=== PATIENT | female | born 1960 | race Hispanic/Latino ===

== ENCOUNTER 2019-12-16 08:16 | Outpatient (CLI) | payer BC, SELFPAY ==
[2019-12-16 09:13] LABS: Hemoglobin A1C 9.3 % (<5.7)
[2019-12-16 09:22] LABS: Alanine Aminotransferase 77 U/L (4-35); Albumin Level 4.3 g/dL (3.5-5.1); Alkaline Phosphatase 65 U/L (38-126); Aspartate Amino Transferase 74 U/L (14-36); Bilirubin,Total 0.3 mg/dL (0.2-1.3); Blood Urea Nitrogen 17 mg/dL (7-17); Calcium 9.2 mg/dL (8.4-10.2); Carbon Dioxide 30 mmol/L (22-30); Chloride 94 mmol/L (98-107); Cholesterol 114 mg/dL (0-200); Estimated Glomerular Filt Rate > 60; Glucose 248 mg/dL (65-105); HDL Direct 29 mg/dL; Sodium 137 mmol/L (137-145); Triglycerides 160 mg/dL (<150)
[2019-12-16 09:32] LABS: LDL Cholesterol Direct 67 mg/dL
[2019-12-16 09:43] LABS: Vitamin D 25 Hydroxy 44.1 ng/mL
== END 2019-12-16 08:17 | disposition home or self-care (01) ==
PROVIDERS: PCP Internal Medicine; Visit Provider Internal Medicine
DX: I10 Essential (primary) hypertension (principal); Z79.899 Other long term (current) drug therapy; E11.9 Type 2 diabetes mellitus without complications; E78.5 Hyperlipidemia, unspecified; E55.9 Vitamin D deficiency, unspecified
CPT/HCPCS: 36415; 80053; 80061; 82306; 83036

== ENCOUNTER 2020-07-02 09:13 | Outpatient (CLI) | payer BC, SELFPAY ==
--- NOTE | ~2020-07-02 | MM_ITS ---
EXAMINATION: MM screening [facility] BI w jarek HISTORY: Screening mammogram TECHNIQUE: Craniocaudal and mediolateral oblique 3-D tomosynthesis images were obtained and synthetic 2-D images were generated. CAD analysis was submitted and interpreted. COMPARISON: 02/07/2019, 09/28/2017, 03/24/2016 bilateral digital screening mammogram examinations BREAST PARENCHYMAL COMPOSITION: There are scattered areas of fibroglandular density. FINDINGS: There is no evidence of suspicious mass, calcification, or architectural distortion to sugg est malignancy in either breast. There has been no suspicious interval change. IMPRESSION: 1. No mammographic evidence of malignancy. 2. Recommend routine screening mammography in one year. BI-RADS Category 1: Negative Reviewed, dictated and finalized at location A.
== END 2020-07-02 09:14 | disposition home or self-care (01) ==
LOC: ANHIMG 09:15
PROVIDERS: PCP Internal Medicine; Visit Provider Internal Medicine
DX: Z12.31 Encounter for screening mammogram for malignant neoplasm of breast (principal)
CPT/HCPCS: 77063; 77067

== ENCOUNTER → 2020-12-17 09:58 | Outpatient (CLI) | payer BC, SELFPAY ==
--- NOTE | ~2020-12-17 | US_ITS ---
EXAMINATION: US pelvic complete w TV EXAM DATE: 12/17/2020 10:24 INDICATION: R10.31 - Right lower quadrant pain . Hysterectomy. TECHNIQUE: Pelvic transabdominal and transvaginal sonogram was performed. There are multiple graysca le and Doppler images available for interpretation. There is no prior study for comparison. FINDINGS: The bladder is unremarkable on transabdominal imaging. On transvaginal imaging the vaginal cuff is unremarkable. There are no adnexal masses identified. IMPRESSION: Unremarkable vaginal cuff and bladder. 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
== END ==
PROVIDERS: Visit Provider Obstetrics & Gynecology
DX: R10.31 Right lower quadrant pain (principal)
CPT/HCPCS: 76830; 76856

== ENCOUNTER 2021-07-29 14:40 | Outpatient (CLI) | payer BC, SELFPAY ==
--- NOTE | ~2021-07-29 | MM_ITS ---
EXAMINATION: MM screening [facility] w jarek HISTORY: Screening TECHNIQUE: Craniocaudal and mediolateral oblique 3-D tomosynthesis images were obtained and synthetic 2-D images were generated. CAD analysis was submitted and interpreted. COMPARISON: Comparison to multiple prior studies sequentially, with oldest reviewed study dated 05/2014. BREAST PARENCHYMAL COMPOSITION: There are scattered areas of fibroglandular density. FINDINGS: There is no evidence of suspicious mass, calcification, or architectural distortion to sugg est malignancy in either breast. There has been no suspicious interval change. IMPRESSION: 1. No mammographic evidence of malignancy. 2. Recommend routine screening mammography in one year. BI-RADS Category 1: Negative Reviewed, dictated and finalized at location A.
== END 2021-07-29 14:41 | disposition home or self-care (01) ==
LOC: ANHIMG 14:43
PROVIDERS: PCP Internal Medicine; Visit Provider Physician Assistant
DX: Z12.31 Encounter for screening mammogram for malignant neoplasm of breast (principal)
CPT/HCPCS: 77063; 77067

== ENCOUNTER 2021-08-05 10:33 | Emergency (ER) | payer BC, SELFPAY ==
--- NOTE | ~2021-08-05 | CT_ITS ---
EXAMINATION: CT abdomen pelvis w con DATE: 08/05/2021 13:53 INDICATION: Low abdominal pain. TECHNIQUE: Computed tomography (CT) of the abdomen and pelvis was performed with 100 mL Omnipaque 350 intravenous contrast. Automated exposure control and iterative reconstruction technique were employe d. The dose-length product was 547.24 mGy-cm. COMPARISON: CT abdomen and pelvis 08/13/2019 FINDINGS: The visualized portions of the lung bases demonstrate mild atelectasis. No pleural effusion . The heart size is normal. No pericardial effusion. The liver, gallbladder, spleen, pancreas, and ad renal glands are normal. There are cysts in the kidneys measuring up to 9 mm on the left. There is wa ll thickening in the ascending, transverse and descending colon, consistent with colitis. The appendi x is normal. There are no pathologically enlarged lymph nodes. There is no free intraperitoneal fluid . There is mild thoracolumbar spondylosis. IMPRESSION: 1. Wall thickening of the ascending, transverse, and descending colon, consistent with colitis. Reviewed, dictated and finalized at location A. IMPRESSION: 1. Wall thickening of the ascending, transverse, and descending colon, consiste nt with colitis.
[2021-08-05 10:54] VITALS: BP 143/71; PULSE 106; RESP 16; TEMP 35.9; O2SAT 98
[2021-08-05 11:09] LABS: Basophils Percent Auto 0.2 % (0.2-1.2); Eosinophils Percent Auto 0.2 % (0-4.4); Hematocrit 47.5 % (37.0-47.0); Hemoglobin 15.5 g/dL (12.0-15.0); Immature Granulocyte Absolute 0.04 K/mm3 (0.00-0.031); Immature Granulocyte Percent A 0.3 % (0-0.5); Lymphocytes Absolute Auto 1.67 K/mm3 (0.9-3.2); Lymphocytes Percent Auto 12.9 % (18.3-44.2); Mean Corpuscular HGB Conc 32.6 g/dl (32-36); Mean Corpuscular Hemoglobin 28.9 pg (26-34); Mean Corpuscular Volume 88.5 fl (80-100); Mean Platelet Volume 8.6 fl (7.4-10.4); Monocytes Percent Auto 7.9 % (2.6-8.5); Neutrophils Absolute Auto 10.2 K/mm3 (1.3-6.7); Neutrophils Percent Auto 78.5 % (45.5-73.1); Platelet Count Result 268 k/mm3 (150-375); Red Blood Count 5.37 M/mm3 (4.2-5.4); Red Cell Distribution Width 13.2 % (11.5-14.5)
[2021-08-05 11:20] LABS: Alanine Aminotransferase 23 U/L (4-35); Albumin Level 4.8 g/dL (3.5-5.1); Alkaline Phosphatase 87 U/L (38-126); Anion Gap 11 mmol/L (8-16); Aspartate Amino Transferase 29 U/L (14-36); Bilirubin,Total 0.6 mg/dL (0.2-1.3); Blood Urea Nitrogen 14 mg/dL (7-17); Calcium 9.7 mg/dL (8.4-10.2); Carbon Dioxide 29 mmol/L (22-30); Chloride 97 mmol/L (98-107); Estimated CRCL calculation 80 ml/min; Estimated Glomerular Filt Rate > 60; Glucose 268 mg/dL (65-110); Lipase 36 U/L (23-300); Sodium 137 mmol/L (137-145)
--- NOTE | 2021-08-05 12:08 | PC.NURSE ---
1034 -daughter states pt was sent home from work 2 days ago R/T COVID symptoms. Asking for COVID test.
[2021-08-05] MEDS: SODIUM CHLORIDE 0.9% IV 1,000 ML 999 ML IV CONT (13:39)
[2021-08-05 13:41] LABS: Add Urine Microscopic? YES; Appearance Urine Clear (Clear); Bacteria Urine Trace /hpf; Bilirubin Urine Negative (Negative); Blood Urine Negative (Negative); Color Urine Yellow (Yellow); Glucose Urine UA 3+ mg/dL (Negative); Ketones Urine 2+ mg/dL (Negative); Leukocyte Esterase Ur Negative LEU/UL (Negative); Nitrate Urine Negative (Negative); Protein Urine Negative (Negative); RBC Urine 0-2 /hpf (0-2); Squamous Epithelial Cell Urine Few /hpf (Few); Urobilinogen Urine Negative mg/dL (<2.0); WBC Urine 0-3 /hpf
[2021-08-05 14:05] LABS: Specific Grav Ur 1.036 (1.001-1.035)
[2021-08-05] MEDS: MORPHINE SULFATE (*CRX) 4 MG/ML INJ IV PUSH (14:12)
[2021-08-05 14:37] LABS: Lactic Acid Reflex 1.2 mmol/L (0.7-2.1)
[2021-08-05] MEDS: KETOROLAC 15 MG/ML VIAL (*BKC) IV PUSH (14:50)
--- NOTE | 2021-08-05 14:50 | ED.ABDPAIN ---
HPI - Abdominal Pain General Chief Complaint: Abdominal Pain Stated Complaint: abd pain/vomiting /diarrhea Time Seen by Provider: 08/05/21 13:20 History of Present Illness HPI narrative: Patient presents with abdominal pain started yesterday. Pain is crampy, constant, no clear aggravating or alleviating factors predominate in her lower abdomen. Her pain associated nausea vomiting and diarrhea. She denies any blood or bile or melena she denies fever she denies recent travel she denies any known sick contacts denies recent antibiotics or recent camping. Related Data Home Medications Medication Instructions Recorded Confirmed cholecalciferol (vitamin D3) 1,250 1,250 mcg PO MONTHLY 12/02/20 01/02/21 mcg (50,000 unit) capsule conjugated estrogens 0.625 mg 0.625 mg PO DAILY 12/02/20 01/02/21 tablet gabapentin 300 mg capsule 300 mg PO DAILY 12/02/20 01/02/21 hydrochlorothiazide 12.5 mg capsule 12.5 mg PO DAILY 12/02/20 01/02/21 omeprazole 20 mg capsule,delayed 20 mg PO DAILY 12/02/20 01/02/21 release Allergies Allergy/AdvReac Type Severity Reaction Status Date / Time No Known Allergies Allergy Verified 02/02/21 10:48 Review of Systems Review of Systems: CONSTITUTIONAL: Denies fever, chills, or sweats. EYES: Denies visual changes, redness, or discharge. ENT: Denies rhinorrhea, congestion, sore throat, or otalgia. CARDIOVASCULAR: Denies chest pain, palpitations, or edema. RESPIRATORY: Denies cough or dyspnea. GASTROINTESTINAL: Reports abdominal pain nausea vomiting and diarrhea GENITOURINARY: Denies dysuria or hematuria. SKIN: Denies rash or itching. MUSCULOSKELETAL: Denies back pain, joint pain, or myalgia. NEUROLOGIC: Denies headache, numbness, dizziness, or weakness. PSYCHIATRIC: Denies anxiety or depression. All systems reviewed & are unremarkable except as noted in HPI and below PMFSH Past Medical History Medical History Asthma Bacterial vaginosis High cholesterol Hypertension Screening for breast cancer Type 2 diabetes mellitus Surgical History Surgical History H/O: hysterectomy Family History Family History Father Malignant neoplasm of prostate, Onset Age: 82 Family history of diabetes mellitus in first degree relative Patient's father is Mother Family history of lung cancer, Onset Age: 56 Family history of heart disease in male family member before age 55 Family history of malignant neoplasm of cervix Family history of type 2 diabetes mellitus Sibling Diabetes mellitus Other Hypertension Social History Social History Smoking status: Never smoker Alcohol intake: current Exam Narrative: GENERAL: Well-appearing, well-nourished, and in no acute distress. HEAD: Normocephalic, atraumatic. EYES: PERRLA and EOMI. ENT: Nares clear, no rhinorrhea or epistaxis. Mucous membranes moist. NECK: Supple. No masses. No JVD CHEST: Clear to auscultation. No respiratory distress. No wheezes rales or rhonchi HEART: Regular rate and rhythm. No murmur heard. Normal peripheral pulses. ABDOMEN: Moderate diffuse tenderness soft, nondistended. EXTREMITIES: Normal range of motion. No edema. SKIN: Warm, dry, no rash. NEURO: No focal deficits. Alert and oriented x3. PSYCH: Normal mood and affect. Course Reevaluation(s) Reevaluation #1: Patient reports feeling much improved labs imaging reviewed with patient. Patient comfortable with outpatient plan. Date: 08/05/21 Time: 14:51 Vital Signs Vital signs: Vital Signs Temperature 35.9 C L 08/05/21 10:54 Pulse Rate 106 H 08/05/21 10:54 Respiratory Rate 16 08/05/21 10:54 Blood Pressure 143/71 H 08/05/21 10:54 Pulse Oximetry 98 08/05/21 10:54 Temperature 35.9 C L 08/05/21 10:54 Pulse Rate 106
== END 2021-08-05 15:38 | disposition home or self-care (01) ==
PROVIDERS: Emergency Provider Emergency Medicine; PCP Internal Medicine
DX: K52.9 Noninfective gastroenteritis and colitis, unspecified (principal); D72.829 Elevated white blood cell count, unspecified; J45.909 Unspecified asthma, uncomplicated; E78.00 Pure hypercholesterolemia, unspecified; I10 Essential (primary) hypertension; E11.9 Type 2 diabetes mellitus without complications; Z79.84 Long term (current) use of oral hypoglycemic drugs
CPT/HCPCS: 36415; 74177; 80053; 81001; 81025; 83605; 83690; 85025; 96361; 96374; 96375; 99284; J1885; J2270; J7030; Q9967

== ENCOUNTER 2022-02-10 01:28 | Day surgery (SDC) | payer BC, SELFPAY ==
--- NOTE | 2022-02-10 07:37 | WPDANESEPPF ---
Anes - Initial Pre Proc Eval Procedure: Operation Date: 02/10/22 08:30 Proposed Procedures p Esophagogastroduodenoscopy & Screening Colonoscopy - Galen Partida MD Date/Time: 02/10/22 07:37 Surgeon: Galen Partida MD Pre Op Diagnosis: GERD, hx of colon polyps Patient Data Age: 61 Gender: F Height: Weight: Allergies Allergy/AdvReac Type Severity Reaction Status Date / Time No Known Allergies Allergy Verified 02/10/22 07:48 Home Medications Medication Instructions Recorded Confirmed Type albuterol sulfate 90 mcg/actuation 1 puff INHALATION Q4H PRN #18 gm 12/15/19 01/02/21 Rx aerosol inhaler amlodipine 10 mg tablet 10 mg PO DAILY #30 tablet 12/15/19 01/02/21 Rx famotidine 40 mg tablet 40 mg PO BID #60 tablet 12/15/19 01/02/21 Rx glipizide 10 mg tablet 10 mg PO DAILY #30 tablet 12/15/19 01/02/21 Rx losartan 50 mg tablet 50 mg PO DAILY #30 tablet 12/15/19 01/02/21 Rx metformin 1,000 mg tablet 1,000 mg PO BID #60 tablet 12/15/19 01/02/21 Rx sitagliptin 25 mg tablet 25 mg PO DAILY #30 tablet 12/15/19 01/02/21 Rx dapagliflozin 5 mg tablet 5 mg PO DAILY #90 tablet 01/13/20 01/02/21 Rx ropinirole 0.5 mg tablet 0.5 mg PO .every evening #30 tablet 03/03/20 01/02/21 Rx cholecalciferol (vitamin D3) 1,250 1,250 mcg PO MONTHLY 12/02/20 01/02/21 History mcg (50,000 unit) capsule conjugated estrogens 0.625 mg 0.625 mg PO DAILY 12/02/20 01/02/21 History tablet gabapentin 300 mg capsule 300 mg PO DAILY 12/02/20 01/02/21 History hydrochlorothiazide 12.5 mg capsule 12.5 mg PO DAILY 12/02/20 01/02/21 History omeprazole 20 mg capsule,delayed 20 mg PO DAILY 12/02/20 01/02/21 History release fluconazole 150 mg tablet 150 mg PO ONCE #1 tablet 12/08/20 01/02/21 Rx clobetasol 0.05 % topical ointment 1 applic TOPICAL BID PRN 14 Days 12/28/20 Rx #30 g triamcinolone acetonide 0.1 % 1 applic TOPICAL TID PRN #15 g 12/28/20 Rx topical ointment ondansetron 4 mg PO Q8H PRN #14 tablet 08/05/21 Rx Patient hx anesthesia problems: none Family hx anesthesia problems: none Results Review: All pre-operative results and documents have been reviewed as part of the pre-operative evaluation. [facility] Past Medical History Medical History Asthma Bacterial vaginosis High cholesterol Hypertension Screening for breast cancer Type 2 diabetes mellitus Surgical History Surgical History H/O: hysterectomy Family History Family History Father Malignant neoplasm of prostate, Onset Age: 82 Family history of diabetes mellitus in first degree relative Patient's father is Mother Family history of lung cancer, Onset Age: 56 Family history of heart disease in male family member before age 55 Family history of malignant neoplasm of cervix Family history of type 2 diabetes mellitus Sibling Diabetes mellitus Other Hypertension Social History Social History Smoking status: Never smoker Alcohol intake: current Anes - Eval Final PreProcedure Day of Procedure 02/10/22 07:37 Patient weight: obese Heart: regular rate and rhythm Lungs: clear to auscultation and normal air movement Airway: Mallampati scale class II Neurological: alert and oriented Last oral intake: >/= 8 hours ASA classification: III Emergent: no Anesthetic plan: proceed Anesthesia type and monitoring: general GIVS Results Review: All pre-operative results and documents have been reviewed as part of the pre-operative evaluation. Informed Consent: The patient's anesthetic plan and its attendant risks and benefits were discussed with the patient/family/POA. Questions were solicited and answers provided to the satisfaction of the patient/family/POA.
[2022-02-10 07:50] VITALS: BP 150/71; PULSE 82; RESP 20; TEMP 35.6; O2SAT 98; BMI 29.9
[2022-02-10 08:08] LABS: Glucose Point of Care 231 mg/dl (65-105)
[2022-02-10] MEDS: LACTATED RINGERS 1,000 ML 150 ML IV CONT (08:08)
--- NOTE | 2022-02-10 08:36 | WPDGICN ---
Assessment and Plan Assessment and plan (1) History of colon polyps: Code(s): Z86.010 - Personal history of colonic polyps Status: Acute Assessment and Plan: Patient has a history of colon polyps 5 years ago. Plan is for surveillance colonoscopy at this time. (2) Globus sensation: Code(s): R19.8 - Other specified symptoms and signs involving the digestive system and abdomen Status: Acute Assessment and Plan: Patient complains of throat irritation history seems to suggest globus phenomenon with a lump like sensation in her throat. Plan is for EGD to assess and exclude any irritation in the esophagus. She may benefit from ENT evaluation if this is not fruitful. GI Consult Note Consult date/time: 02/10/22 08:36 HPI: Joana Vance is a 61 year old female Presents for colonoscopy an EGD. Patient has a history of colon polyp removed from the colon 5 years ago. She presents today for follow-up examination. She reports her current weight appetite bowel movements are normal. She does note throat sensation. Some discomfort with swallowing. She feels a lump in her throat. She denies any difficulty swallowing there is no difficulty with food passing. She has no heartburn. An EGD is requested to exclude acid reflux contributing to this sensation. She has not yet seen ENT service. Review of Systems Review of Systems: All systems reviewed & are unremarkable except as noted in HPI and below PMFSH Past Medical History Medical History Asthma Bacterial vaginosis High cholesterol Hypertension Screening for breast cancer Type 2 diabetes mellitus Surgical History Surgical History H/O: hysterectomy Family History Family History Father Malignant neoplasm of prostate, Onset Age: 82 Family history of diabetes mellitus in first degree relative Patient's father is Mother Family history of lung cancer, Onset Age: 56 Family history of heart disease in male family member before age 55 Family history of malignant neoplasm of cervix Family history of type 2 diabetes mellitus Sibling Diabetes mellitus Other Hypertension Social History Social History Smoking status: Never smoker Alcohol intake: current Meds Home Medications and Allergies Home Medications Medication Instructions Recorded Confirmed Type albuterol sulfate 90 mcg/actuation 1 puff INHALATION Q4H PRN #18 gm 12/15/19 01/02/21 Rx aerosol inhaler amlodipine 10 mg tablet 10 mg PO DAILY #30 tablet 12/15/19 01/02/21 Rx famotidine 40 mg tablet 40 mg PO BID #60 tablet 12/15/19 01/02/21 Rx glipizide 10 mg tablet 10 mg PO DAILY #30 tablet 12/15/19 01/02/21 Rx losartan 50 mg tablet 50 mg PO DAILY #30 tablet 12/15/19 01/02/21 Rx metformin 1,000 mg tablet 1,000 mg PO BID #60 tablet 12/15/19 01/02/21 Rx sitagliptin 25 mg tablet 25 mg PO DAILY #30 tablet 12/15/19 01/02/21 Rx dapagliflozin 5 mg tablet 5 mg PO DAILY #90 tablet 01/13/20 01/02/21 Rx ropinirole 0.5 mg tablet 0.5 mg PO .every evening #30 tablet 03/03/20 01/02/21 Rx cholecalciferol (vitamin D3) 1,250 1,250 mcg PO MONTHLY 12/02/20 01/02/21 History mcg (50,000 unit) capsule conjugated estrogens 0.625 mg 0.625 mg PO DAILY 12/02/20 01/02/21 History tablet gabapentin 300 mg capsule 300 mg PO DAILY 12/02/20 01/02/21 History hydrochlorothiazide 12.5 mg capsule 12.5 mg PO DAILY 12/02/20 01/02/21 History omeprazole 20 mg capsule,delayed 20 mg PO DAILY 12/02/20 01/02/21 History release fluconazole 150 mg tablet 150 mg PO ONCE #1 tablet 12/08/20 01/02/21 Rx clobetasol 0.05 % topical ointment 1 applic TOPICAL BID PRN 14 Days 12/28/20 Rx #30 g triamcinolone acetonide 0.1 % 1 applic TOPICAL TID PRN #15 g 12/28/20 Rx topical oin
--- NOTE | 2022-02-10 08:57 | SUR.OPER ---
EGD: [id number] COLON: [id number]
[2022-02-10 09:11] VITALS: BP 114/66; PULSE 80; RESP 20; O2SAT 97
[2022-02-10 09:21] VITALS: BP 102/65; PULSE 74; RESP 16; O2SAT 99
[2022-02-10 09:31] VITALS: BP 110/69; PULSE 74; RESP 18; O2SAT 100
== END 2022-02-10 09:42 | disposition home or self-care (01) ==
PROVIDERS: PCP Internal Medicine; Visit Provider Internal Medicine Gastroenterology
PROC: 0DJ08ZZ Inspection of Upper Intestinal Tract, Via Natural or Artificial Opening Endoscopic (ICD-10-PCS; CPT 43235; principal; 2022-02-10 08:30)
DX: Z12.11 Encounter for screening for malignant neoplasm of colon (principal); D12.3 Benign neoplasm of transverse colon; R07.0 Pain in throat; R19.8 Other specified symptoms and signs involving the digestive system and abdomen; I10 Essential (primary) hypertension; E11.9 Type 2 diabetes mellitus without complications; J45.909 Unspecified asthma, uncomplicated; E78.00 Pure hypercholesterolemia, unspecified; Z79.51 Long term (current) use of inhaled steroids; Z79.84 Long term (current) use of oral hypoglycemic drugs; E66.9 Obesity, unspecified; Z68.29 Body mass index [BMI] 29.0-29.9, adult
CPT/HCPCS: 45385; 43235; 82948; 88305; J2001; J2704; J7120

== ENCOUNTER 2024-01-14 14:29 | Outpatient (CLI) | payer BC, SELFPAY ==
--- NOTE | ~2024-01-14 | MM_ITS ---
EXAMINATION: MM screening marizol BI w jarek HISTORY: Screening mammogram TECHNIQUE: Craniocaudal and mediolateral oblique 3-D tomosynthesis images were obtained and synthetic 2-D images were generated. CAD analysis was submitted and interpreted. COMPARISON: 07/29/2021, 07/02/2020 bilateral screening mammogram examinations BREAST PARENCHYMAL COMPOSITION: There are scattered areas of fibroglandular density. FINDINGS: There is no evidence of suspicious mass, calcification, or architectural distortion to sugg est malignancy in either breast. There has been no suspicious interval change. IMPRESSION: 1. No mammographic evidence of malignancy. 2. Recommend routine screening mammography in one year. 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
== END 2024-01-14 14:30 | disposition home or self-care (01) ==
LOC: ANHIMG 14:35
PROVIDERS: PCP Physician Assistant; Visit Provider Physician Assistant
DX: Z12.31 Encounter for screening mammogram for malignant neoplasm of breast (principal)
CPT/HCPCS: 77063; 77067

== ENCOUNTER 2024-08-28 14:56 | Outpatient (CLI) | payer BC, SELFPAY ==
--- NOTE | ~2024-08-28 | US_ITS ---
EXAMINATION: US soft tissue head and neck DATE: 08/28/2024 16:17 INDICATION: Pain in throat. TECHNIQUE: Multiple ultrasound images of the neck were obtained. COMPARISON: None. FINDINGS: The right thyroid lobe measures 3.9 x 1.2 x 1.2 cm. The left thyroid lobe measures 4.1 x 1.1 x 1.2 c m. There is normal echotexture and echogenicity throughout the thyroid gland. No discrete nodules id entified. Normal vascular flow is present. In the submandibular region, there is a 1.7 x 1.3 x 1.2 cm hypoechoic mass. IMPRESSION: 1. 1.7 x 1.3 x 1.2 cm submandibular mass. The differential diagnosis includes ectopic thyroid, thyrog lossal duct cyst, and malignancy. Neck CT with contrast is recommended. Reviewed, dictated and finalized at location A. IMPRESSION: 1. 1.7 x 1.3 x 1.2 cm submandibular mass. The differential diagnosis includes e ctopic thyroid, thyroglossal duct cyst, and malignancy. Neck CT with contrast i s recommended.
== END 2024-08-28 14:57 | disposition home or self-care (01) ==
PROVIDERS: PCP Physician Assistant; Visit Provider Physician Assistant
DX: R22.0 Localized swelling, mass and lump, head (principal); R07.0 Pain in throat
CPT/HCPCS: 76536

== ENCOUNTER 2025-09-11 13:29 | Outpatient (CLI) | payer BC, SELFPAY ==
--- NOTE | ~2025-09-11 | MM_ITS ---
EXAMINATION: MM screening [facility] BI w jarek HISTORY: Screening TECHNIQUE: Craniocaudal and mediolateral oblique 3-D tomosynthesis images were obtained and synthetic 2-D images were generated. CAD analysis was submitted and interpreted. COMPARISON: Comparison to multiple prior studies sequentially, with oldest reviewed study dated 03/24/2016. BREAST PARENCHYMAL COMPOSITION: Not dense: There are scattered areas of fibroglandular density. FINDINGS: There is no evidence of suspicious mass, calcification, or architectural distortion to suggest malignancy in either breast. There has been no suspicious interval change. IMPRESSION: 1. No mammographic evidence of malignancy. 2. Recommend routine screening mammography in one year. BI-RADS Category 1: Negative Reviewed, dictated and finalized at location B.
--- OUTSIDE RECORDS SUMMARY | 2025-09-11 13:33 | XMS_ITS | Clinical Summary ---
Author Organization [facility] Address [facility] [place] [address] Care Team Providers Care Laborer Vineyard Name Role Phone Unavailable Primary Care Provider Unavailabl e Allergies No known active allergies Medications conjugated estrogens (PREMARIN) 0.625 MG/GM vaginal creamIndications:A trophic vaginitis Place 0.5 g vaginally daily. 30 g 1 Active triamcinolone 0.1 % creamIndications:L ichen sclerosus Apply topically 2 (two) times daily. 80 g 1 2 Active FREESTYLE LITE test stripIndications:T ype 2 diabetes mellitus with diabetic neuropathy, without long-term current use of insulin ([facility]) USE 1 STRIP TO CHECK GLUCOSE ONCE DAILY DIRECTED 100 strip 2 Active JANUVIA 25 MG TabIndications:Typ e 2 diabetes mellitus with diabetic neuropathy, without long-term current use of insulin ([facility]) Take 1 tablet by mouth once daily 30 tablet 2 Active famotidine (PEPCID) 20 MG tabletIndications: Gastroesophageal reflux disease without esophagitis Take 1 tablet (20 mg total) by mouth 2 (two) times daily. 180 tablet 1 2 Active amLODIPine (NORVASC) 5 MG tabletIndications: Essential hypertension Take 1 tablet (5 mg total) by mouth daily. 90 tablet 1 2 Active Dapagliflozin Propanediol (FARXIGA) 10 MG TabIndications:Typ e 2 diabetes mellitus without complication, without long-term current use of insulin ([facility]) Take 10 mg by mouth daily. 90 tablet 1 2 Active glipiZIDE (GLUCOTROL) 10 MG tabletIndications: Type 2 diabetes mellitus without complication, without long-term current use of insulin ([facility]) Take 1 tablet (10 mg total) by mouth daily. 90 tablet 1 2 Active losartan (COZAAR) 100 MG tabletIndications: Essential hypertension Take 1 tablet (100 mg total) by mouth daily. 90 tablet 2 Active metFORMIN (GLUCOPHAGE) 1000 MG tabletIndications: Type 2 diabetes mellitus without complication, without long-term current use of insulin ([facility]) Take 1 tablet (1,000 mg total) by mouth 2 (two) times daily. 180 tablet 1 2 Active rOPINIRole (REQUIP) 0.5 MG tabletIndications: Restless leg syndrome Take 1 tablet (0.5 mg total) by mouth every evening. 90 tablet 1 2 Active VENTOLIN HFA 108 (90 Base) MCG/ACT inhalerIndications :Mild intermittent asthma without complication ([facility]) INHALE 1 PUFF BY MOUTH EVERY 4 HOURS NEEDED FOR SHORTNESS OF BREATH OR FOR WHEEZING 18 g 2 2 Active PREMARIN 0.625 MG tabletIndications: Hormonal disorder Take 1 tablet by mouth once daily 30 tablet 2 Active simvastatin (ZOCOR) 40 MG tabletIndications: Mixed hyperlipidemia Take 1 tablet by mouth once daily 90 tablet 2 Active gabapentin (NEURONTIN) 300 MG capsuleIndications :Neuropathy associated with endocrine disorder ([facility]) Take 1 capsule by mouth 4 times daily 360 capsule 2 Active vitamin D3, cholecalciferol, 1.25 MG (85923 UT) capsuleIndications :Vitamin D deficiency Take 1 capsule by mouth once a week 6 capsule 2 Active hydroCHLOROthiazid e (MICROZIDE) 12.5 MG tabletIndications: Essential hypertension TAKE 1 TABLET BY MOUTH IN THE MORNING 90 tablet 2 Active Active Problems Problem Noted Date Diagnosed Date Submandibular lymphadenopathy 01/11/2022 Sore throat 12/09/2021 Essential hypertension 06/18/2020 Vitamin D deficiency 06/18/2020 Neuropathy associated with endocrine disorder Hormonal disorder 06/18/2020 Restless leg syndrome 06/18/2020 Mild intermittent asthma without complication Mixed hyperlipidemia 05/12/2020 Type 2 diabetes mellitus wit hout complication, without long-term current use of insulin 05/12/2020 Gastroesophageal reflux disease without esophagi tis 05/12/2020 Anemia, unspecified type 05/12/2020 Fatigue, unspecified type 05/12/2020 Resolved Problems Problem Noted Date Diagnosed Date Resolved Date Need for immunization against influenza 08/11/2021 08/15/2021 Vaginosis 04/29/2021 02/20/2022 Acute bilateral low back beverly n without sciatica 10/29/2020 02/04/2021 Acute cystitis without hematuria 10/29/2020 05/26/2022 Labyrinthitis, unspecified laterality 10/29/2020 02/04/2021 Positive H. pylori test 06/18/202010/12 Screening for malignant neoplasm of breast 05/12/2020 07/23/2020 Immunizations Immunization Administration Dates Next Due Fluarix (IIV4) 08/27/2019 Fluzone 6 Months+ Quad (0.5 mL Prefilled Syringe ) 08/10/2021,08/18/2020 Influenza (Generic) 08/12/2018 Influenza Adult (Generic) 07/21/2018 Pneumococcal (Pneumovax 23) 07/21/2018 Family History Medical History Relation Comments No Known Problems Brother Diabetes Father Cancer Mother Diabetes Mother No Known Problems Sister Relation Status Comments Brother Father Mother Sister Social History Tobacco Use Types Packs/Day Years Used Date Smoking Tobacco: Never Smokeless Tobacco: Never Tobacco Cessation:Counseling Given: No Alcohol Use Standard Drinks/Week Comments Not Currently 0 (1 standard drink = 0.6 oz pur e alcohol) rare PHQ-2 Answer Date Recorded PHQ-2 Score - If the patient scores above 3, please move on to questions 3-9 0 05/26/2022 Education Answer Date Recorded What is the highest level of school you have completed or the highest degree you have received? 11th grade 05/12/2020 Comments No Sex and Gender Information Value Date Recorded Sex Assigned at Not on file Legal Sex Female 12:03 PM CDT Gender Identity Not on file Sexual Orientation Not on file Last Filed Vital Signs Vital Sign Reading Time Taken Comments Blood Pressure 124/72 05/26/2022 10:37 AM CDT Pulse 75 05/26/2022 10:37 AM CDT Temperature 35.8 C (96.5 F) 05/26/2022 10:37 AM CDT Respiratory Rate 16 05/26/2022 10:37 AM CDT Oxygen Saturation 97% 05/26/2022 10:37 AM CDT Inhaled Oxygen Concentration - - Weight 74.7 kg (164 lb 9.6 oz) 05/26/2022 10:37 AM CDT Height 157.5 cm (5' 2) 05/26/2022 10:37 AM CDT Body Mass Index 30.11 05/26/2022 10:37 AM CDT Plan of Treatment Health Maintenance Due Date Last Done Comments Kidney Health Evaluation 1961 Hepatitis C 1979 Zoster Vaccines (1 of 2) 2011 RSV Immunization or 60+ Years (1 - Risk 60-74 years 1-dose series) 2021 Annual Physical 06/27/2022 06/27/2021 Lipid Panel 06/27/2022 06/27/2021, 05/13/2020 Hemoglobin A1C 11/26/2022 05/26/2022, 11/13, 08/10/2021, Additional history exists Diabetes: Retinopathy Eye Exam 03/18/2023 03/18/2021 Mammogram Screening 07/29/2023 07/29/2021, 07/29/2021, 07/02/2020, Additional history exists COVID-19 Vaccine (3 - season) 2025 02/17/2021, 01/20/2021 Influenza Adult (#1) 2025 08/29/2023, 08/10/2021, 08/18/2020, Additional history exists Colorectal Cancer Screening Colonoscopy (10 Years) 11/02/2027 11/02/2017, 11/02/2017 DTaP, Tdap and Td Vaccines (3 - Td or Tdap) 11/13/2033 11/13/2023, 07/30/2013 Colorectal Cancer Screening FIT-DNA (3 Years) Discontinued 07/04/2021, 07/04/2021 Pneumococcal Vaccine: 50+ Years Completed 12/01/2022, 07/21/2018, 07/30/2013 Hepatitis A Vaccines Aged Out No long er eligible based on patient's age to complete this topic Meningococcal B Vaccine Aged Out No l onger eligible based on patient's age to complete this topic Meningococcal Vaccine Aged Out No frandy christ eligible based on patient's age to complete this topic RSV Immunizations Under 20 Months Aged Out No longer eligible based on patient's age to complete this topic Procedures Procedure Name Priority Date/Time Associated Diagnosis Comments HEMOGLOBIN, GLYCOSYLATED Routine 05/26/2022 Type 2 diabetes mellitus without complication, without long-term current use of insulin MAMMOGRAM GENERIC (SCAN ORDER) 07/29/2021 COLOGUARD (EXACT SCIENCE) Routine 07/04/2021 8:30 AM CDT Colon cancer screening LIPID PANEL Routine 06/27/2021 10:21 AM CDT Routine [facility] DIABETIC RETINOPATHY EXAM (NEGATIVE)(SCAN ORDER) Routine 03/18/2021 COLONOSCOPY GENERIC (SCAN ORDER) 11/02/2017 from Last 3 Months or Most Recently Relevant to Health Maintenance Results * HEMOGLOBIN, GLYCOSYLATED (05/26/2022) HGB A1C 9.0 % [id number] Pastora TREADWE[address] TROUP 05/26/2022 Maik Hayes MD LABORATORY Final Re sult Performing Organization Address City/State/[facility] Co de Phone Number [phone] [address] [place] [address], [place] [phone] * MAMMOGRAM GENERIC (07/29/2021) Anatomical Region Laterality Modality Other 07/29/2021 Narrative 07/29/2021 Ordered by an unspecified provider. us Documents Scanned SCANNING Final Result * COLOGUARD (EXACT SCIENCE) (07/04/2021 8:30 AM CDT) COLOGUARD RESULT Negative Negative [facility] [facility] (CLIA #:[id number]) Comment: NEGATIVE TEST RESULT. A negative Cologuard result indicates a low likelihood that a colorectal cancer (CRC) or advanced adenoma (adenomatous polyps with more advanced pre-malignant features) is present. The chance that a person with a negative Cologuard test has a colorectal cancer is less than 1 in 1500 (negative predictive value >99.9%) or has an advanced adenoma is less than 5.3% (negative predictive value 94.7%). These data are based on a prospective cross-sectional study of 10,000 individuals at average risk for colorectal cancer who were screened with both Cologuard and colonoscopy. (Toña Greenberg et al, N Engl J Med 2014;370(14):5608-9202) The normal value (reference range) for this assay is negative. COLOGUARD RE-SCREENING RECOMMENDATION: Periodic colorectal cancer screening is an important part of preventive healthcare for asymptomatic individuals at average risk for colorectal cancer. Following a negative Cologuard result, the [place] [employer] Society and U.S. Multi-Society Task Force screening guidelines recommend a Cologuard re-screening interval of 3 years. References: [place] [employer] Guideline for Colorectal Cancer Screening: https://www.cancer.org/cancer/rgkqw-cjxtgy-zgvkin/wlxdxuusv-qznytkswr-dpkskhr/ac s-rec ommendations.html.; Buzz DK, Hakan CR, Joey WeaverK, Colorectal Cancer Screening: Recommendations for Physicians and Patients from the U.S. Multi-Society Task Force on Colorectal Cancer Screening , Am J Gastroenterology 2017; 112:8866-9380. TEST DESCRIPTION: Composite algorithmic analysis of stool DNA-biomarkers with hemoglobin immunoassay. Quantitative values of individual biomarkers are not reportable and are not associated with individual biomarker result reference ranges. Cologuard is intended for colorectal cancer screening of adults of either sex, 45 years or older, who are at average-risk for colorectal cancer (CRC). Cologuard has been approved for use by the U.S. FDA. The performance of Cologuard was established in a cross sectional study of average-risk adults aged 50-84. Cologuard performance in patients ages 45 to 49 years was estimated by sub-group analysis of near-age groups. Colonoscopies performed for a positive result may find as the most clinically significant lesion: colorectal cancer [4.0%], advanced adenoma (including sessile serrated polyps greater than or equal to 1cm diameter) [20%] or non- advanced adenoma [31%]; or no colorectal neoplasia [45%]. These estimates are derived from a prospective cross-sectional screening study of 10,000 individuals at average risk for colorectal cancer who were screened with both Cologuard and colonoscopy. (Toña Thakkar al, N Engl J Med 2014;370(14):7058-0278.) Cologuard may produce a false negative or false positive result (no colorectal cancer or precancerous polyp present at colonoscopy follow up). A negative Cologuard test result does not guarantee the absence of CRC or advanced adenoma (pre-cancer). The current Cologuard screening interval is every 3 years. ([place] [employer] Society and U.S. Multi-Society Task Force). Cologuard performance data in a 10,000 patient pivotal study using colonoscopy as the reference method can be accessed at the following location: www.Schoolfy.Grupanya/results. Additional description of the Cologuard test process, warnings and precautions can be found at www.cologAero Farm Systemsrd.com. Stool specimen (specimen) STOOL SPECIMEN / Unknown 07/04/2021 8:30 AM CDT 07/05/2021 8:42 PM CDT Awa INFANTE BODY FLUIDS AND STOOLS ORDER TERESA Final Result [facility] ([facility]) [address] [place] [address], [facility] (CLIA #:[id number]) [address] [place] [place] [address] * (ABNORMAL) LIPID PANEL (06/27/2021 10:21 AM CDT) CHOLESTEROL 170 <200.0 MG/DL 06/27/2021 2:10 PM CDT [facility] TRIGLYCERIDES 340(H) <150 MG/DL 06/27/2021 2:10 PM CDT [facility] HDL 42 >40.0 MG/DL 06/27/2021 2:10 PM CDT [facility] LDL (CALCULATED) 60 <100 MG/DL 06/27/2021 2:10 PM CDT [facility] NON HDL CHOLESTEROL 128 <130 MG/DL 06/27/2021 2:10 PM T [facility] CHOL/HDL RATIO 4.0 0.0 - 4.5 06/27/2021 2:10 PM T [facility] VLDL CALCULATION 68(H) 5 - 55 MG/DL 06/27/2021 2:10 PM T [facility] LIPID INTERPRETATION 06/27/2021 2:10 PM T [facility] Comment: NIH CONCENSUS REPORT RECOMMENDATIONS: ADULT CHILD LOW RISK: CHOLESTEROL <200 <170 TRIGLYCERIDE <150 --- HDL >=60 --- LDL <100 <110 BORDERLINE: CHOLESTEROL 200-239 170-199 TRIGLYCERIDE 150-199 --- HDL 40-59 --- LDL 100-159 110-129 HIGH RISK: CHOLESTEROL >=240 >=200 TRIGLYCERIDE >=200 --- HDL <40 --- LDL >=160 >=130 06/27/2021 10:2 1 AM CDT [facility] Final Result [facility] [address] [place] [address], [place] [phone] * DIABETIC RETINOPATHY EXAM (NEGATIVE)(SCAN) (03/18/2021) us Documents Scanned SCANNING Final Result Performing Organization Address City/[facility]/ZIP Co de Phone Number [facility] * COLONOSCOPY GENERIC (11/02/2017) 11/02/2017 Narrative 11/02/2017 Ordered by an unspecified provider. us Documents Scanned SCANNING Final Result from Last 3 Months or Most Recently Relevant to Health Maintenance Insurance [facility]
--- OUTSIDE RECORDS SUMMARY | 2025-09-11 13:33 | XMS_ITS | Clinical Summary ---
Author Organization [facility] [address] [facility] Address [address] [place] [address] Care Team Providers Care Racing Board Marker Name Role Phone Steffany Miller Primary Care Provider + Allergies No known active allergies Medications simvastatin (ZOCOR) 40 mg tablet TAKE 1 TABLET BY MOUTH ONCE DAILY IN THE EVENING 90 tablet 1 9 Active VENTOLIN HFA 90 mcg/actuation inhaler INHALE 2 PUFFS BY MOUTH EVERY 4 HOURS NEEDED 1 Inhaler 3 9 Active losartan-hydroCH LOROthiazide (HYZAAR) 50-12.5 mg per tablet TAKE 1 TABLET BY MOUTH ONCE DAILY 90 tablet 1 9 Active PREMARIN 0.625 mg tablet TAKE 1 TABLET BY MOUTH ONCE DAILY 30 tablet 9 Active metFORMIN (GLUCOPHAGE) 1,000 mg tablet TAKE 1 TABLET BY MOUTH TWICE DAILY FOR 90 DAYS 180 tablet 1 9 Active rOPINIRole (REQUIP) 0.5 mg tablet TAKE 1 TABLET BY MOUTH ONCE DAILY 30 tablet 2 9 Active JARDIANCE 25 mg tablet TAKE 1 TABLET BY MOUTH ONCE DAILY 90 tablet 1 9 Active gabapentin (NEURONTIN) 300 mg capsule TAKE 1 CAPSULE BY MOUTH THREE TIMES DAILY 90 capsule 2 9 Active FREESTYLE LITE STRIPS strip 1 each by other route as directed 100 each 1 9 Active ibuprofen (ADVIL,MOTRIN) 800 mg tablet Take 1 tablet (800 mg total) by mouth 3 (three) times a day 21 tablet 4 Active Mounjaro 7.5 mg/0.5 mL pen injector INJECT 7.5MG UNDER THE SKIN EVERY WEEK 4 Active omeprazole (PriLOSEC) 20 mg capsuleIndicatio ns:Gastroesophag eal reflux disease, unspecified whether esophagitis present Take 1 capsule (20 mg total) by mouth 2 (two) times a day 30 minutes before breakfast and supper 60 capsule 3 4 Active famotidine (PEPCID) 20 mg tabletIndication s:Gastroesophage al reflux disease, unspecified whether esophagitis present Take 1 tablet (20 mg total) by mouth nightly 30 tablet 3 4 Active Active Problems Problem Noted Date Diagnosed Date Laryngopharyngeal reflux (LPR) 10/06/2024 Thyroglossal duct cyst 10/06/2024 Dysphagia 08/29/2024 Globus sensation 08/29/2024 Immunizations Immunization Administration Dates Next Due Influenza, Quadrivalent, Spl it, Preservative Free, Intramuscular 07/21/2018 Influenza, Trivalent, IM (MDV) 08/12/2018 Pfizer SARS-CoV-2 Monovalent Vaccination (12+ Yrs) PURPLE 02/17/2021,01/20/2021 Pneumococcal Polysaccharide PPV23 07/21/2018 Surgical History Surgery Date Site/Laterality Comments HYSTERECTOMY Medical History Medical History Date Comments Throat discomfort Family History Medical History Relation Name Comments Diabetes Brother Diabetes Father Cancer Mother Throat Diabetes Mother Diabetes Sister Relation Name Status Comments Brother Father Mother Sister Social History Tobacco Use Types Packs/Day Years Used Date Smoking Tobacco: Never Smokeless Tobacco: Never Alcohol Use Standard Drinks/Week Comments Never 0 (1 standard drink = 0.6 oz pur e alcohol) AUDIT-C Answer Date Recorded Frequency of Alcohol Consumption Never 02/21/2019 Average Number of Drinks Not on file 019 Frequency of Binge Drinking Not on file 02/10 Comments No Sex and Gender Information Value Date Recorded Sex Assigned at Not on file Legal Sex Female 2:21 AM ACCESS COORDINATOR Gender Identity Not on file Sexual Orientation Not on file 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 Not on file Not on file Obstetrics History Last Filed Vital Signs Vital Sign Reading Time Taken Comments Blood Pressure 135/74 04/28/2024 10:13 PM CDT Pulse 72 04/28/2024 10:13 PM CDT Temperature 36.8 C (98.3 F) 04/28/2024 8:14 PM CDT Respiratory Rate 18 10/06/2024 11:35 AM ACCESS COORDINATOR Oxygen Saturation 98% 04/28/2024 10:13 PM CDT Inhaled Oxygen Concentration - - Weight 73.5 kg (162 lb) 10/06/2024 11:35 AM ACCESS COORDINATOR Height 157.5 cm (5' 2) 10/06/2024 11:35 AM ACCESS COORDINATOR Body Mass Index 29.63 10/06/2024 11:35 AM ACCESS COORDINATOR Plan of Treatment Health Maintenance Due Date Last Done Comments Colon Cancer Screening-Colonoscopy 1961 Depression Screening 1960 Hepatitis C Screening 1960 Hepatitis B Screening 1979 Regular Well Visit/Exam 18-64 1979 Zoster Vaccine (1 of 2) 2011 Breast Cancer Screening-Mammogram 01/15/2025 024, 01/14/2024 Covid-19 Vaccine (2024-12 6 season) 2025 09/13/2022, 02/17/2021, 01/20/2021 Influenza Vaccine (#1) 2025 3, 09/13/2022, 08/10/2021, Additional history exists DTaP/Tdap/Td Vaccine (3 - Td or Tdap) 11/13/2033 11/13/2023, 07/30/2013 Pneumococcal vaccine <65 Completed 023, 07/21/2018, 07/30/2013 Insurance [employer] ACCESS IN [employer] ACCESS IN Member Subscriber Plan / Payer (Ef fective 2017-Present) Name:Joana Vance Relation to Subscriber:Self Name:Joana Vance Payer ID:[id number] (NAIC) Type: OTHER Address: [address] Care Teams Racing Board Marker Relationship Specialty Start Date End Date Steffany Miller PA PCP - General Physician Cnc Wood Lathe Operator 12/21/22
--- OUTSIDE RECORDS SUMMARY | 2025-09-11 13:33 | XMS_ITS | Encounter Summary ---
Author Organization [facility] Care Team Providers Care Supervisor Rolling Room Name Role Phone Aramis Zhang MD Primary Care Provider [phone] Tana Gupta Primary Care Provider [phone] Steffany Miller Primary Care Provider + Encounter Details Date Type Department Care Team (Latest Contact Info) Description 11/20/2018 Orders Only [facility] CLINCON[facility] ProviderAlvina MD [address] [place] [id number] Social History Tobacco Use Types Packs/Day Years Used Date Smoking Tobacco: Never Assessed Comments Unknown Sex and Gender Information Value Date Recorded Sex Assigned at Not on file Legal Sex Female 2:21 AM HYDROELECTRIC COMPONENT MACHINIST Gender Identity Not on file Sexual Orientation Not on file documented as of this encounter Plan of Treatment Not on file documented as of this encounter Procedures Procedure Name Priority Date/Time Associated Diagnosis Comments COLONOSCOPY - SCAN 11/20/2018 12 :00 AM HYDROELECTRIC COMPONENT MACHINIST documented in this encounter Results * COLONOSCOPY - SCAN (11/20/2018 12:00 AM HYDROELECTRIC COMPONENT MACHINIST) Narrative 11/20/2018 12:00 AM HYDROELECTRIC COMPONENT MACHINIST Ordered by an unspecified provider. us Historical Provider Final Res ult documented in this encounter Visit Diagnoses Not on filedocumented in this encounter Additional Health Concerns Infection Onset Date Last Indicated Resolved Time COVID: Suspected 04/28/2024 04/28/2024 04/28/2024 9:05 PM CDT documented as of this encounter Care Teams Supervisor Rolling Room Relationship Specialty Start Date End Date Aramis Zhang MD PCP - General 02/05/12 02/20/19 Tana Gupta PA [address] [place], [place] [id number] PCP - General Internal Medicine 02/21/19 06/26/19 Steffany Miller PA [address] [place], [place] [id number] PCP - General Physician Jewelry Sorter 12/21/22 documented as of this encounter
== END 2025-09-11 13:30 | disposition home or self-care (01) ==
LOC: ANHFOHIMG 13:31
PROVIDERS: PCP Physician Assistant; Visit Provider Physician Assistant
DX: Z12.31 Encounter for screening mammogram for malignant neoplasm of breast (principal)
CPT/HCPCS: 77063; 77067